=== PATIENT | female | born 1960 | race Caucasian/White ===

== ENCOUNTER 2023-02-08 19:30 | Emergency (ER) | payer OTHER ==
[~2023-02-08] VITALS: Ht 170.2 cm; Wt 78.5 kg
[2023-02-08 19:33] VITALS: BP_SYST 164; PULSE 86; RESP 16; TEMP 97.5; O2SAT 97
[2023-02-08] MEDS ORDERED: IBUP-1969 PO (19:58)
[2023-02-08] MEDS ORDERED: AUG875 PO (19:58)
[2023-02-08 20:14] VITALS: BP_SYST 164; PULSE 86; RESP 16; TEMP 97.5; O2SAT 97
== END 2023-02-08 20:10 | disposition home or self-care (01) ==
LOC: SED 19:30
DX: K04.7 Periapical abscess without sinus (principal); K08.89 Other specified disorders of teeth and supporting structures; Z79.899 Other long term (current) drug therapy
CPT/HCPCS: 99283